=== PATIENT | female | born 1940 | race Caucasian/White ===

== ENCOUNTER 2018-08-16 19:20 | Inpatient (IN) | payer MEDICARE, MEDICAID ==
[2018-08-16 19:54] LABS: % BASOPHILS 0.3 % (0.0-2.0); % EOSINOPHILS 8.3 % (0.0-5.0); % LYMPHOCYTES 22.6 % (20.0-50.0); % MONOCYTES 9.6 % (2.0-10.0); % NEUTROPHILS 59.2 % (40.0-80.0); EOSINOPHILE ABSOLUTE 0.8 Th/cmm (0.1-0.4); HEMATOCRIT 39.4 % (41.0-60); HEMOGLOBIN 12.7 gm/dL (12-16); LYMPHOCYTE ABSOLUTE 2.2 Th/cmm (1.5-3.0); MEAN CELL VOLUME 94.1 fl (81-100); MEAN CORPUSCULAR HEMOGLOBIN 30.3 pg (27.0-31.0); MEAN CORPUSCULAR HGB CONC 32.2 pg (28.0-36.0); MEAN PLATELET VOLUME 9.5 fl; MONOCYTE ABSOLUTE 0.9 Th/cmm (0.3-1.0); NEUTROPHILE ABSOLUTE 5.9 Th/cmm (1.8-8.0); PLATELET COUNT 250 Th/cmm (150-400); RED BLOOD COUNT 4.19 Mil/cmm (3.80-5.20); RED CELL DISTRIBUTION WIDTH 12.3 % (11.5-20.0); WHITE BLOOD COUNT 9.8 Th/cmm (4.8-10.8)
--- NOTE | 2018-08-16 19:58 | ED Physician Chart ---
ED Chief Complaint/HPI - Patient Information Date Seen:: 08/16/18 Time Seen:: 19:35 Chief Complaint:: agitation History of Present Illness:: location: general quality: agitation, refusing care severity: moderate duration: one day context: SNF pt with pysch history has been refusing care and becoming more agitated. facility SNF staff are unable to provide routine care due to agitation and pt becoming angry with staff and pushing staff away. facility staff are unable to perform routine activity. called PCP who advised send to ER for medical evaluation. and possible joe- psych admission for further evaluation and care. mod factors: none assoc s/s: none hx from EMS, SNF staff. Allergies:: Allergies Allergy/AdvReac Type Severity Reaction Status Date / Time codeine Allergy Verified 08/16/18 19:30 Vitals:: Vital Signs - 8 hr 08/16/18 19:30 Temp 98.1 F HR 81 RR 17 BP 152/88 O2 Sat % 99 Historian:: EMS Review:: Nurse's Note Reviewed, EMS run form Reviewed ED Review of Systems - Review of Systems General/Constitutional: No fever, No edema Skin: No bruising Eyes: No diplopia ENT: No sore throat Neck: No neck pain Cardio Vascular: No edema Pulmonary: No cough, No wheezing GI: No vomiting, No diarrhea Musculoskeletal: No back pain Endocrine: No polyuria Psychiatric: Prior psych history Hematopoietic: No lymphadenopathy Allergic/Immuno: No angioedema Neurological: No syncope, No seizure ED Past Medical History - Past Medical History Family History: None Social History: Non Smoker, No Alcohol, No Drug Use, Single, Care Facility Surgical History: None Psychiatricy History: Schizophrenia, Bipolar Medication: Reviewed Family Medical History - Family Member Mother History Unknown: Yes ED Physical Exam - Physical Examination General/Constitutional: Awake, Well-developed, well-nourished, Alert, No distress (pt is agitated, initially refuses physician exam, pushes examiner away forcefully. permits exam later in visit), Non-toxic appearing Head: Atraumatic Eyes: Lids, conjuctiva normal, PERRL, EOMI Skin: Nl inspection, No skin lesions, Well hydrated ENMT: External ears, nose nl, Oropharynx nl Neck: Nontender, No nuchal rigidity Respiratory: Nl effort/Exclusion, Clear to Auscultation, No Wheeze/Rhonchi/Rales Cardio Vascular: RRR, No murmur, gallop, rubs, NL S1 S2 GI: No tenderness/rebounding/guarding : No CVA tenderness Extremities: No edema, Normal digits & nails Neuro/Psych: Normal sensory exam, Mood normal (agitated mood), No focal deficits Misc: Normal back, No paraspinal tenderness ED Labs/Radiology/EKG Results - EKG Interpretations Comments:: EKG NSR 70 borderline left axis deviation no acute ST elevation no acute ST depression no ectopy otherwise normal EKG ER READ ED Assessment - Assessment General Assessment: pt in stable medical condition during ER stay ED Septic Shock - . Is Septic Shock (SBP<90, OR Lactate>4 mmol\L) present?: No - <6hrs of presentation: Vital Signs: Vital Signs - 8 hr 08/16/18 19:30 Temp 98.1 F HR 81 RR 17 BP 152/88 O2 Sat % 99 Assessment of Lungs: Lung CTA bilateral Assessment of Heart: RRR EKG Interpretation: NSR Capillary refill evaluation: Capillary refill < 2 secs Skin Exam: Warm, Dry, Good Turgur ED Reassessment (Disposition) - Reassessment Reassessment:: medical decision making increased agitation, refusing facility care due to psychiatric symptom worsening medically pt is in stable condition. to be medically cleared for admission to joe-psyc Reassessment Condition:: Unchanged - Diagnosis Diagnosis:: medical clearance for joe-psyc due to agitation, exacerbation - Patient Disposition Discharge/Transfer:: Acute Care w/in this hosp Admitted to:: [facility] Admitting Medical Physician:: Ben Carroll Admitting Psych Physician:: Arnoldo Nava Condition at Disposition:: Stable, Unchanged
[2018-08-16 20:08] LABS: ALB/GLOB RATIO 1.3 (1.0-1.8); ALKALINE PHOSPHATASE 47 U/L (34-104); ANION GAP 12.9 (7.0-16.0); BILIRUBIN,TOTAL 0.3 mg/dL (0.3-1.0); BUN - UREA NITROGEN 29 mg/dL (7-25); CALCIUM SERUM 9.9 mg/dL (8.6-10.3); CARBON DIOXIDE 26.6 mEq/L (21.0-31.0); CHLORIDE 103 mEq/L (98-107); CREATININE - SERUM 0.9 mg/dL (0.6-1.2); GLUCOSE 103 mg/dL (70-105); POTASSIUM SERUM 3.5 mEq/L (3.5-5.1); SGOT 15 U/L (13-39); SGPT/ALT 11 U/L (7-52); SODIUM SERUM 139 mEq/L (136-145); TOTAL PROTEIN,SERUM 7.1 gm/dL (6.0-8.3)
[2018-08-16] MEDS ORDERED: Magnesium Hydroxide (MOM) 30 mL UDC PO PRN (21:57)
[2018-08-16] MEDS ORDERED: Maalox 30 mL Cup PO PRN (21:57)
[2018-08-16 22:00] VITALS: BP 133/66
[2018-08-16 23:14] LABS: CHOLESTEROL 242 mg/dL (<200); HDL -HIGH DENSITY LIPOPROTEIN 50 mg/dL (23-92); TRIGLYCERIDES 126 mg/dL (<150)
[2018-08-17] MEDS ORDERED: Non-Formulary Item 1 EA (Nutritional Supplement [Resource 2.0] 90 ML) PO SCH (09:00)
[2018-08-17] MEDS: Multivitamin Tab PO SCH (09:20)
--- NOTE | 2018-08-17 22:33 | History & Physical ---
ADMIT DATE: 08/16/2018 CHIEF COMPLAINT: Admitted to geropsychiatry with agitated behavior. HISTORY OF PRESENT ILLNESS: This is a 78-year-old female with history of hyperglycemia, hypertension and psych disorder, who was admitted from nursing facility secondary to above complaints. The patient is a poor historian, agitated, not making sense. PAST MEDICAL HISTORY: As mentioned in history present illness. PAST SURGICAL HISTORY: Unable to obtain. ALLERGIES: CODEINE. MEDICATIONS: Include Tylenol, Colace, lorazepam, lisinopril, Namenda, Zoloft. FAMILY HISTORY: Noncontributory. SOCIAL HISTORY: The patient is a [facility] patient, requiring 24-hour total care. REVIEW OF SYSTEMS: This is limited secondary to the patient's current mental state. We will try to obtain more detailed review of system at a later date by talking to family members. There is a son, Lorne Zelaya from [employer] [phone]. We will also try to get information from nursing staff at [facility] at [phone] as well as from Dr. Nava. PHYSICAL EXAMINATION: VITAL SIGNS: Blood pressure 143/76, respirations 18, pulse 74, temperature is 97.6. GENERAL: Elderly female, appears chronically ill, in a Mitra chair. NECK: Supple. No mass. LUNGS: Equal breath sounds, otherwise clear to auscultation. HEART: Regular rate and rhythm without appreciable murmurs. ABDOMEN: Soft, nontender. EXTREMITIES: Positive excoriation. NEUROLOGIC: Limited. LABORATORY DATA: WBC 9, hemoglobin 12, platelets 250. Sodium 139, potassium 3.5, BUN 29, creatinine 0.9. Blood sugar was 103, triglyceride 242. ASSESSMENT AND PLAN: Renal insufficiency, hyperglycemia, hypertension, psych disorder and gait instability. We will place the patient on fall precaution. We will continue the patient on antihypertensive medication. We will monitor the patient's ____ function, may consider a statin medication. We will place the patient on low-cholesterol diet for now. We will continue to monitor the patient closely. Psychiatry to manage the patient for all psych issues. JOB# [id number]
--- NOTE | 2018-08-18 05:50 | Psychiatric Evaluation ---
DATE OF SERVICE: 08/16/2018 IDENTIFYING DATA: The patient is a 78-year-old resident of [facility]. Information obtained by directly interviewing the patient as well as reviewing the admission papers. JUSTIFICATION FOR HOSPITALIZATION: The patient is admitted on a voluntary basis in view of her acute agitation. CHIEF COMPLAINT: "I am okay." HISTORY OF PRESENT ILLNESS: This is the first psychiatric hospitalization to [facility] for this patient who is reported to have been frequently falling and then refusing to participate in her ADLs and getting easily agitated and acting inappropriately and that basis, the patient has been referred over here for stabilization. I tried to get interviewed the patient, but the patient is refusing and is stating that everything is written up there and then she does not need to give any information. The patient has been getting very testy. Review of the hospitalization indicated that the patient is being followed up on an outpatient basis by Dr. Nava and has been on Zoloft 25 mg and Klonopin has been getting 0.5 mg b.i.d. p.r.n. With these medications, the patient is reported to have been still having a problem. PAST PSYCHIATRIC HISTORY: Details are not known. MEDICAL HISTORY: Physical examination is requested to be done by Dr. Carroll. LEGAL PROBLEMS: None at this time. PHYSICAL OR SEXUAL ABUSE HISTORY: None. STRENGTH AND ASSETS: The patient is motivated. MENTAL STATUS EXAMINATION: The patient is a 78-year-old woman, thin built, superficially cooperative. Eye contact is poor. Mood is noted to be irritable. Affect is constricted. Coping skills are noted to be extremely poor. Sleep and appetite are also noted to be very poor. The patient has been having difficult time to cope with the stress. The patient has been feeling frustrated. The patient is getting easily irritable and angry. The patient is reported to have been acting very inappropriately prior to being hospitalized. The patient's short and long-term memory are noted to be very poor. Therefore, the patient is aware that she is in the hospital. Attention span is noted to be very poor. DIAGNOSTIC IMPRESSION: AXIS I: Major depressive disorder, recurrent and moderate. IB: Dementia and behavioral change secondary to it. AXIS II: None. AXIS III: As per Dr. Carroll. IMMEDIATE TREATMENT PLAN: The patient is going to be continued on her Zoloft and Ativan on a p.r.n. basis and the patient is going to be followed up with the supportive therapy. ESTIMATED LENGTH OF STAY: 3-5 days. DISCHARGE CRITERIA: When the patient is no longer a threat to self or others and be able to cope up with the stress. JOB# [id number]
[2018-08-18] MEDS: Multivitamin Tab PO SCH (08:53)
--- NOTE | 2018-08-18 12:55 | Internal Medicine Prog Note ---
Internal Medicine Subjective - Subjective Patient seen and examined:: with staff, chart reviewed Patient is:: awake, verbal, devante chair, talking, confused Per staff patient has:: no adverse event, no episodes of fall, poor oral intake , agitated, combative Internal Medicine Objective - Results Result Diagrams: 08/16/18 19:45 08/16/18 19:45 Recent Labs: Laboratory Last Values WBC 9.8 Th/cmm (4.8-10.8) 08/16/18 19:45 RBC 4.19 Mil/cmm (3.80-5.20) 08/16/18 19:45 Hgb 12.7 gm/dL (12-16) 08/16/18 19:45 Hct 39.4 % (41.0-60) L 08/16/18 19:45 MCV 94.1 fl (81-100) 08/16/18 19:45 MCH 30.3 pg (27.0-31.0) 08/16/18 19:45 MCHC Differential 32.2 pg (28.0-36.0) 08/16/18 19:45 RDW 12.3 % (11.5-20.0) 08/16/18 19:45 Plt Count 250 Th/cmm (150-400) 08/16/18 19:45 MPV 9.5 fl 08/16/18 19:45 Neutrophils % 59.2 % (40.0-80.0) 08/16/18 19:45 Lymphocytes % 22.6 % (20.0-50.0) 08/16/18 19:45 Monocytes % 9.6 % (2.0-10.0) 08/16/18 19:45 Eosinophils % 8.3 % (0.0-5.0) H 08/16/18 19:45 Basophils % 0.3 % (0.0-2.0) 08/16/18 19:45 Sodium 139 mEq/L (136-145) 08/16/18 19:45 Potassium 3.5 mEq/L (3.5-5.1) 08/16/18 19:45 Chloride 103 mEq/L (98-107) 08/16/18 19:45 Carbon Dioxide 26.6 mEq/L (21.0-31.0) 08/16/18 19:45 Anion Gap 12.9 (7.0-16.0) 08/16/18 19:45 BUN 29 mg/dL (7-25) H 08/16/18 19:45 Creatinine 0.9 mg/dL (0.6-1.2) 08/16/18 19:45 Est GFR ( Amer) TNP 08/16/18 19:45 Est GFR (Non-Af Amer) TNP 08/16/18 19:45 BUN/Creatinine Ratio 32.2 08/16/18 19:45 Glucose 103 mg/dL (70-105) 08/16/18 19:45 Calcium 9.9 mg/dL (8.6-10.3) 08/16/18 19:45 Total Bilirubin 0.3 mg/dL (0.3-1.0) 08/16/18 19:45 AST 15 U/L (13-39) 08/16/18 19:45 ALT 11 U/L (7-52) 08/16/18 19:45 Alkaline Phosphatase 47 U/L (34-104) 08/16/18 19:45 Total Protein 7.1 gm/dL (6.0-8.3) 08/16/18 19:45 Albumin 4.0 gm/dL (3.7-5.3) 08/16/18 19:45 Globulin 3.1 gm/dL 08/16/18 19:45 Albumin/Globulin Ratio 1.3 (1.0-1.8) 08/16/18 19:45 Triglycerides 126 mg/dL (<150) 08/16/18 19:45 Cholesterol 242 mg/dL (<200) H 08/16/18 19:45 LDL Cholesterol Direct 172 mg/dL (75-193) 08/16/18 19:45 HDL Cholesterol 50 mg/dL (23-92) 08/16/18 19:45 TSH 2.82 uIU/ml (0.34-5.60) 08/16/18 19:45 - Physical Exam Vitals and I&O: Vital Signs Temp 97.8 F 08/18/18 06:26 Pulse 75 08/18/18 08:53 Resp 19 08/18/18 06:26 BP 147/85 08/18/18 08:53 Pulse Ox 96 08/18/18 06:26 Intake & Output 08/17/18 08/18/1819 18:59 06:59 18:59 Intake Total 1000 360 Output Total 1 Balance 1000 359 Intake: Oral 1000 360 Output: Urine/Stool Mix 1 Other: # Voids 2 1 # Bowel Movements 0 Active Medications: Current Medications Acetaminophen (Tylenol) 650 mg PO Q4HR PRN PRN Reason: Mild Pain 1-3/ Temp above 100 Stop: 10/15/18 21:56 Al Hydrox/Mg Hydrox/Simethicone (Maalox) 30 ml PO Q4HR PRN PRN Reason: GI DISTRESS Stop: 10/15/18 21:56 Amlodipine Besylate (Norvasc) 10 mg PO DAILY [facility] Stop: 10/16/18 08:59 Last Admin: 08/18/18 08:53 Dose: 10 mg Docusate Sodium (Colace) 100 mg PO BID [facility] Stop: 10/16/18 08:59 Last Admin: 08/18/18 08:54 Dose: 100 mg Lisinopril (Zestril) 10 mg PO DAILY [facility] Stop: 10/16/18 08:59 Last Admin: 08/18/18 08:53 Dose: 10 mg Lorazepam (Ativan) 0.5 mg PO Q4HR PRN; Protocol PRN Reason: Anxiety Stop: 09/15/18 21:56 Magnesium Hydroxide (Milk Of Magnesia) 30 ml PO HS PRN PRN Reason: Constipation Memantine (Namenda) 10 mg PO HS [facility] Stop: 10/16/18 20:59 Last Admin: 08/17/18 21:12 Dose: 10 mg Multivitamins/Vitamin C (Theragran) 1 tab PO DAILY [facility] Stop: 10/16/18 08:59 Last Admin: 08/18/18 08:53 Dose: 1 tab Sertraline HCl (Zoloft) 25 mg PO DAILY [facility]; Protocol Stop: 10/16/18 08:59 Last Admin: 08/18/18 08:53 Dose: 25 mg Zolpidem Tartrate (Ambien) 5 mg PO HS PRN PRN Reason: Insomnia Stop: 10/15/18 21:56 General: demented HEENT: NC/AT, PERRLA, EOMI Neck: Supple, No JVD, No thyromegaly Lungs: CTAB Cardiovascular: RRR, Normal S1, Normal S2, with murmur Abdomen: soft, non-tender, globular, positive bowel sound Extremities: excoriation, contracture Neurological: no change, disorganized Internal Medicine Assmt/Plan - Assessment Assessment: ASSESSMENT Renal insufficiency, hyperglycemia, hypertension, psych disorder and gait instability. We will place the patient on fall precaution. We will continue the patient on antihypertensive medication. - Plan Plan: PLAN: We will place the patient on fall precaution. We will continue the patient on antihypertensive medication. We will monitor the patient's __lft__ function, may consider a statin medication. We will place the patient on low-cholesterol diet for now. We will continue to monitor the patient closely. Psychiatry to manage the patient for all psych issues.
--- NOTE | 2018-08-19 01:21 | Progress Notes ---
DATE: 08/18/2018 PSYCHIATRIC PROGRESS NOTE SUBJECTIVE: Staff was spoken to. The patient is interviewed. Mood is noted to be irritable. Affect is constricted. Insight and judgment noted to be still impaired. Impulse control is very poor. The patient is still isolative and withdrawn. Mood is noted to be depressed. Coping skills are noted to be very poor. The patient has been presenting with anxiety symptoms and the patient is currently on the lorazepam on a p.r.n. basis. ASSESSMENT: The patient is still depressed. PLAN: To continue the patient with the current medications and followup. JOB# [id number]
[2018-08-19] MEDS: Multivitamin Tab PO SCH (08:49)
--- NOTE | 2018-08-19 09:45 | Internal Medicine Prog Note ---
Internal Medicine Subjective - Subjective Patient seen and examined:: with staff, chart reviewed Patient is:: awake, verbal, devante chair, talking, confused Per staff patient has:: no adverse event, no episodes of fall, poor oral intake , agitated, combative Internal Medicine Objective - Results Result Diagrams: 08/16/18 19:45 08/16/18 19:45 Recent Labs: Laboratory Last Values WBC 9.8 Th/cmm (4.8-10.8) 08/16/18 19:45 RBC 4.19 Mil/cmm (3.80-5.20) 08/16/18 19:45 Hgb 12.7 gm/dL (12-16) 08/16/18 19:45 Hct 39.4 % (41.0-60) L 08/16/18 19:45 MCV 94.1 fl (81-100) 08/16/18 19:45 MCH 30.3 pg (27.0-31.0) 08/16/18 19:45 MCHC Differential 32.2 pg (28.0-36.0) 08/16/18 19:45 RDW 12.3 % (11.5-20.0) 08/16/18 19:45 Plt Count 250 Th/cmm (150-400) 08/16/18 19:45 MPV 9.5 fl 08/16/18 19:45 Neutrophils % 59.2 % (40.0-80.0) 08/16/18 19:45 Lymphocytes % 22.6 % (20.0-50.0) 08/16/18 19:45 Monocytes % 9.6 % (2.0-10.0) 08/16/18 19:45 Eosinophils % 8.3 % (0.0-5.0) H 08/16/18 19:45 Basophils % 0.3 % (0.0-2.0) 08/16/18 19:45 Sodium 139 mEq/L (136-145) 08/16/18 19:45 Potassium 3.5 mEq/L (3.5-5.1) 08/16/18 19:45 Chloride 103 mEq/L (98-107) 08/16/18 19:45 Carbon Dioxide 26.6 mEq/L (21.0-31.0) 08/16/18 19:45 Anion Gap 12.9 (7.0-16.0) 08/16/18 19:45 BUN 29 mg/dL (7-25) H 08/16/18 19:45 Creatinine 0.9 mg/dL (0.6-1.2) 08/16/18 19:45 Est GFR ( Amer) TNP 08/16/18 19:45 Est GFR (Non-Af Amer) TNP 08/16/18 19:45 BUN/Creatinine Ratio 32.2 08/16/18 19:45 Glucose 103 mg/dL (70-105) 08/16/18 19:45 Calcium 9.9 mg/dL (8.6-10.3) 08/16/18 19:45 Total Bilirubin 0.3 mg/dL (0.3-1.0) 08/16/18 19:45 AST 15 U/L (13-39) 08/16/18 19:45 ALT 11 U/L (7-52) 08/16/18 19:45 Alkaline Phosphatase 47 U/L (34-104) 08/16/18 19:45 Total Protein 7.1 gm/dL (6.0-8.3) 08/16/18 19:45 Albumin 4.0 gm/dL (3.7-5.3) 08/16/18 19:45 Globulin 3.1 gm/dL 08/16/18 19:45 Albumin/Globulin Ratio 1.3 (1.0-1.8) 08/16/18 19:45 Triglycerides 126 mg/dL (<150) 08/16/18 19:45 Cholesterol 242 mg/dL (<200) H 08/16/18 19:45 LDL Cholesterol Direct 172 mg/dL (75-193) 08/16/18 19:45 HDL Cholesterol 50 mg/dL (23-92) 08/16/18 19:45 TSH 2.82 uIU/ml (0.34-5.60) 08/16/18 19:45 - Physical Exam Vitals and I&O: Vital Signs Temp 97.2 F 08/19/18 06:56 Pulse 85 08/19/18 08:51 Resp 20 08/19/18 06:56 BP 143/80 08/19/18 08:51 Pulse Ox 97 08/19/18 06:56 Intake & Output 08/18/18 08/19/1819 18:59 06:59 18:59 Intake Total 850 Balance 850 Intake: Oral 850 Other: # Voids 3 # Bowel Movements 1 Active Medications: Current Medications Acetaminophen (Tylenol) 650 mg PO Q4HR PRN PRN Reason: Mild Pain 1-3/ Temp above 100 Stop: 10/15/18 21:56 Al Hydrox/Mg Hydrox/Simethicone (Maalox) 30 ml PO Q4HR PRN PRN Reason: GI DISTRESS Stop: 10/15/18 21:56 Amlodipine Besylate (Norvasc) 10 mg PO DAILY REPLACED BY [facility] Stop: 10/16/18 08:59 Last Admin: 08/19/18 08:51 Dose: 10 mg Docusate Sodium (Colace) 100 mg PO BID REPLACED BY [facility] Stop: 10/16/18 08:59 Last Admin: 08/19/18 08:50 Dose: 100 mg Lisinopril (Zestril) 10 mg PO DAILY REPLACED BY [facility] Stop: 10/16/18 08:59 Last Admin: 08/19/18 08:50 Dose: 10 mg Lorazepam (Ativan) 0.5 mg PO Q4HR PRN; Protocol PRN Reason: Anxiety Stop: 09/15/18 21:56 Magnesium Hydroxide (Milk Of Magnesia) 30 ml PO HS PRN PRN Reason: Constipation Memantine (Namenda) 10 mg PO HS REPLACED BY [facility] Stop: 10/16/18 20:59 Last Admin: 08/18/18 21:39 Dose: 10 mg Multivitamins/Vitamin C (Theragran) 1 tab PO DAILY REPLACED BY [facility] Stop: 10/16/18 08:59 Last Admin: 08/19/18 08:49 Dose: 1 tab Sertraline HCl (Zoloft) 25 mg PO DAILY REPLACED BY [facility]; Protocol Stop: 10/16/18 08:59 Last Admin: 08/19/18 08:50 Dose: 25 mg Zolpidem Tartrate (Ambien) 5 mg PO HS PRN PRN Reason: Insomnia Stop: 10/15/18 21:56 General: demented HEENT: NC/AT, PERRLA, EOMI Neck: Supple, No JVD, No thyromegaly Lungs: CTAB Cardiovascular: RRR, Normal S1, Normal S2, with murmur Abdomen: soft, non-tender, globular, positive bowel sound Extremities: excoriation, contracture Neurological: no change, disorganized Internal Medicine Assmt/Plan - Assessment Assessment: ASSESSMENT Renal insufficiency, hyperglycemia, hypertension, psych disorder and gait instability. We will place the patient on fall precaution. We will continue the patient on antihypertensive medication. - Plan Plan: PLAN: We will place the patient on fall precaution. We will continue the patient on antihypertensive medication. We will monitor the patient's __lft__ function, may consider a statin medication. We will place the patient on low-cholesterol diet for now. We will continue to monitor the patient closely. Psychiatry to manage the patient for all psych issues.
--- NOTE | 2018-08-19 16:09 | Progress Notes ---
DATE: 08/19/2018 SUBJECTIVE: Staff was spoken to. The patient is interviewed. Mood is noted to be irritable. Affect is constricted. Insight and judgment are noted to be impaired. Impulse control is noted to be poor. Coping skills are also noted to be very poor. The patient is very angry and upset and is stating that she is going to ____ of other people. The patient has been testing the limits. The patient is not able to contract for safety. No side effects to the medications are noted. In view of her paranoia. The patient is going to be started on low dose of Seroquel, which is going to be started at 12.5 mg and followed up with supportive therapy. Please note that the patient is not ready to be discharged at a lower level of care in view of her aggressive behavior and paranoid delusions. JOB# [id number]
[2018-08-20] MEDS: Multivitamin Tab PO SCH (09:23)
--- NOTE | 2018-08-20 09:52 | Internal Medicine Prog Note ---
Internal Medicine Subjective - Subjective Patient seen and examined:: with staff, chart reviewed Patient is:: awake, verbal, devante chair, talking, confused Per staff patient has:: no adverse event, no episodes of fall, poor oral intake , agitated, combative Internal Medicine Objective - Results Result Diagrams: 08/16/18 19:45 08/16/18 19:45 Recent Labs: Laboratory Last Values WBC 9.8 Th/cmm (4.8-10.8) 08/16/18 19:45 RBC 4.19 Mil/cmm (3.80-5.20) 08/16/18 19:45 Hgb 12.7 gm/dL (12-16) 08/16/18 19:45 Hct 39.4 % (41.0-60) L 08/16/18 19:45 MCV 94.1 fl (81-100) 08/16/18 19:45 MCH 30.3 pg (27.0-31.0) 08/16/18 19:45 MCHC Differential 32.2 pg (28.0-36.0) 08/16/18 19:45 RDW 12.3 % (11.5-20.0) 08/16/18 19:45 Plt Count 250 Th/cmm (150-400) 08/16/18 19:45 MPV 9.5 fl 08/16/18 19:45 Neutrophils % 59.2 % (40.0-80.0) 08/16/18 19:45 Lymphocytes % 22.6 % (20.0-50.0) 08/16/18 19:45 Monocytes % 9.6 % (2.0-10.0) 08/16/18 19:45 Eosinophils % 8.3 % (0.0-5.0) H 08/16/18 19:45 Basophils % 0.3 % (0.0-2.0) 08/16/18 19:45 Sodium 139 mEq/L (136-145) 08/16/18 19:45 Potassium 3.5 mEq/L (3.5-5.1) 08/16/18 19:45 Chloride 103 mEq/L (98-107) 08/16/18 19:45 Carbon Dioxide 26.6 mEq/L (21.0-31.0) 08/16/18 19:45 Anion Gap 12.9 (7.0-16.0) 08/16/18 19:45 BUN 29 mg/dL (7-25) H 08/16/18 19:45 Creatinine 0.9 mg/dL (0.6-1.2) 08/16/18 19:45 Est GFR ( Amer) TNP 08/16/18 19:45 Est GFR (Non-Af Amer) TNP 08/16/18 19:45 BUN/Creatinine Ratio 32.2 08/16/18 19:45 Glucose 103 mg/dL (70-105) 08/16/18 19:45 Calcium 9.9 mg/dL (8.6-10.3) 08/16/18 19:45 Total Bilirubin 0.3 mg/dL (0.3-1.0) 08/16/18 19:45 AST 15 U/L (13-39) 08/16/18 19:45 ALT 11 U/L (7-52) 08/16/18 19:45 Alkaline Phosphatase 47 U/L (34-104) 08/16/18 19:45 Total Protein 7.1 gm/dL (6.0-8.3) 08/16/18 19:45 Albumin 4.0 gm/dL (3.7-5.3) 08/16/18 19:45 Globulin 3.1 gm/dL 08/16/18 19:45 Albumin/Globulin Ratio 1.3 (1.0-1.8) 08/16/18 19:45 Triglycerides 126 mg/dL (<150) 08/16/18 19:45 Cholesterol 242 mg/dL (<200) H 08/16/18 19:45 LDL Cholesterol Direct 172 mg/dL (75-193) 08/16/18 19:45 HDL Cholesterol 50 mg/dL (23-92) 08/16/18 19:45 TSH 2.82 uIU/ml (0.34-5.60) 08/16/18 19:45 - Physical Exam Vitals and I&O: Vital Signs Temp 99.0 F 08/19/18 14:00 Pulse 75 08/20/18 09:25 Resp 18 08/19/18 14:00 BP 126/73 08/20/18 09:25 Pulse Ox 96 08/19/18 14:00 Intake & Output 08/19/18 08/20/1819 18:59 06:59 18:59 Intake Total 700 120 Balance 700 120 Intake: Oral 700 120 Other: # Voids 3 3 # Bowel Movements 1 Active Medications: Current Medications Acetaminophen (Tylenol) 650 mg PO Q4HR PRN PRN Reason: Mild Pain 1-3/ Temp above 100 Stop: 10/15/18 21:56 Al Hydrox/Mg Hydrox/Simethicone (Maalox) 30 ml PO Q4HR PRN PRN Reason: GI DISTRESS Stop: 10/15/18 21:56 Amlodipine Besylate (Norvasc) 10 mg PO DAILY [facility] Stop: 10/16/18 08:59 Last Admin: 08/20/18 09:25 Dose: 10 mg Docusate Sodium (Colace) 100 mg PO BID [facility] Stop: 10/16/18 08:59 Last Admin: 08/20/18 09:23 Dose: 100 mg Lisinopril (Zestril) 10 mg PO DAILY [facility] Stop: 10/16/18 08:59 Last Admin: 08/20/18 09:24 Dose: 10 mg Lorazepam (Ativan) 0.5 mg PO Q4HR PRN; Protocol PRN Reason: Anxiety Stop: 09/15/18 21:56 Magnesium Hydroxide (Milk Of Magnesia) 30 ml PO HS PRN PRN Reason: Constipation Memantine (Namenda) 10 mg PO HS [facility] Stop: 10/16/18 20:59 Last Admin: 08/19/18 20:50 Dose: 10 mg Multivitamins/Vitamin C (Theragran) 1 tab PO DAILY [facility] Stop: 10/16/18 08:59 Last Admin: 08/20/18 09:23 Dose: 1 tab Quetiapine Fumarate (Seroquel) 12.5 mg PO HS [facility]; Protocol Stop: 10/18/18 20:59 Last Admin: 08/19/18 20:50 Dose: 12.5 mg Sertraline HCl (Zoloft) 25 mg PO DAILY [facility]; Protocol Stop: 10/16/18 08:59 Last Admin: 08/20/18 09:24 Dose: 25 mg Zolpidem Tartrate (Ambien) 5 mg PO HS PRN PRN Reason: Insomnia Stop: 10/15/18 21:56 General: demented HEENT: NC/AT, PERRLA, EOMI Neck: Supple, No JVD, No thyromegaly Lungs: CTAB Cardiovascular: RRR, Normal S1, Normal S2, with murmur Abdomen: soft, non-tender, globular, positive bowel sound Extremities: excoriation, contracture Neurological: no change, disorganized Internal Medicine Assmt/Plan - Assessment Assessment: ASSESSMENT Renal insufficiency, hyperglycemia, hypertension, psych disorder and gait instability. We will place the patient on fall precaution. We will continue the patient on antihypertensive medication. - Plan Plan: PLAN: We will place the patient on fall precaution. We will continue the patient on antihypertensive medication. We will monitor the patient's __lft__ function, may consider a statin medication. We will place the patient on low-cholesterol diet for now. We will continue to monitor the patient closely. Psychiatry to manage the patient for all psych issues. Nutritional Asmnt/Malnutr-PDOC - Dietary Evaluation Malnutrition Findings (Please click <Entered> for more info): Nutritional Asmnt/Malnutrition Start: 08/19/18 10: 29 Text: Status: Complete Freq: Protocol: Document 08/19/18 10:29 RHAQUE (Rec: 08/19/18 10:51 RHAQUE [email or web address]) Nutritional Asmnt/Malnutrition Patient General Information Nutritional Screening Moderate Risk Diagnosis Psychosis Pertinent Medical Hx/Surgical Hx Hyperglycemia, HTN, Schizophrenia Subjective Information Pt was asleep during IA. Nurse described her as very confused and combative. Pt is described as eating 75% of meals. Current Diet Order/ Nutrition Support Fortified Regular diet, 4 oz. HPN at lunch and dinner Pertinent Medications Maalox, Docusate, MOM, Zoloft, Ambien Pertinent Labs Cholest 242 (08/16) Nutritional Hx/Data Height 1.57 m Height (Calculated Centimeters) 157.5 Current Weight (lbs) 58.967 kg Weight (Calculated Kilograms) 59.0 Weight (Calculated Grams) 53096.0 [place] Body Weight 110 % [place] Body Weight 118 Body Mass Index (BMI) 23.8 Weight Status Approriate GI Symptoms GI Symptoms None Last BM 1 x (08/19) Difficult in: None Food Allergies No Cultural/Ethnic/Orthodox Belief None Noted Skin Integrity/Comment: Jacobo Score 17 (Mod risk) Pt has photos in her physical chart of Ecchymosis on her arms & legs. Current %PO Good (75-100%) Estimated Nutritional Goals BEE in Kcals: Adj wt of IBW Calories/Kcals/Kg 25-30 Kcals Calculated 2606-6289 Protein: Adj wt of IBW Protein g/k.8-1 Protein Calculated 42-52 Fluid: ml 5403-9087 Nutritional Problem 1. Problem Problem Pt has excessive fat intake Etiology due to inappropriate diet order Signs/Symptoms: labs indicate Hypercholesterolemia Cholest 242 (08/16) Malnutrition Alert Is there a minimum of two criteria No selected? Query Text:Check all the applicable criteria. A minimum of two criteria are recommended for diagnosis of either severe or non-severe malnutrition. Malnutrition Related to Morbid Obesity Malnutrition related to morbid obesity No Intervention/Recommendation Comments Recommend changing diet order to cardiac diet. Expected Outcomes/Goals Expected Outcomes/Goals - Monitor PO intake. - Lipid Panel Return to WNL. - F/U in 7 days as LR
--- NOTE | 2018-08-20 22:08 | Progress Notes ---
DATE: 08/20/2018 PSYCHIATRIC PROGRESS NOTE SUBJECTIVE: Staff was spoken to. The patient is interviewed. Mood is noted to be irritable. Affect is constricted. Insight and judgment at this time are noted to be still impaired. Impulse control is noted to be poor. Coping skills are noted to be very poor. The patient has been isolative and withdrawn. The patient is having difficult time to cope with the stress. No side effects to the medications are noted; however, the patient continues to be paranoid and has been getting easily irritable and angry and has been sexually preoccupied. No side effects to the medications are noted. The patient is going to be placed on Seroquel, which is going to be increased to 25 mg tonight and the patient is going to be followed up with the supportive therapy. ASSESSMENT: The patient is depressed and psychotic. PLAN: To continue the patient with the supportive therapy and followup. JOB# [id number]
--- NOTE | 2018-08-20 23:31 | Consultation ---
DATE OF CONSULTATION: 08/18/2018 REFERRING PHYSICIAN: Ricardo Tripp M.D. TYPE OF CONSULTATION: Psychology. HISTORY OF PRESENT ILLNESS: The patient is a 78-year-old female. The patient is a resident of [facility]. The following is by record review and by the patient's self-report. The patient is being admitted due to acute agitation. Upon interview, the patient states that she believes she is okay. According to the staff at the patient's facility the patient has been refusing to participate in her ADLs and getting easily agitated and acting inappropriately. It is noted the patient has had frequent falls. The patient seems to be testing limits. The patient denied any suicidal ideation, plan or intention at the time of this clinical interview. PAST MEDICAL HISTORY: Please see history and physical by Dr. Carroll. PAST PSYCHIATRIC HISTORY: Details are unknown. Records are unavailable. According to record review, the patient has a history of depression and dementia. The patient is under the care of Dr. Nava at her placement. SUBSTANCE ABUSE HISTORY: The patient denied any history of alcohol, tobacco or illicit drug use. PSYCHOSOCIAL HISTORY: The patient did answer questions about family relationships and family members involved in her care. The patient did not answer questions about occupational or educational history or orthodox affiliation. The patient denied any history of physical or sexual abuse. She denies current legal problems. MENTAL STATUS EXAMINATION: The patient appears to be her stated age. The patient appears to be frail. Attitude is superficially cooperative. Eye contact is poor. Speech is slow and delayed with some mumbling. Mood is irritable. Affect is constricted. Thought process shows to be confused. The patient denied any auditory or visual hallucinations. The patient denies any suicidal ideation, plan or intention. The patient's behavior has been difficult to redirect as well as irritable and angry. Impulse control is inadequate. Concentration is poor. The patient was unable to repeat 3 items given to her the first time. She was unable to recall any of the 3 items after several minutes. Immediate and short term memory are impaired. Long-term memory needs further evaluation, but presents as somewhat impaired. Sensorium is alert to self and place only. The patient did not participate in interpretation of proverbs. Insight is poor. Judgment is impaired. DIAGNOSTIC IMPRESSION: AXIS I: 1. Major depressive disorder, recurrent, moderate. 2. Dementia with behavioral disturbance. AXIS II: Deferred. AXIS III: Per Dr. Carroll. TREATMENT PLAN: The patient has been seen by Dr. Tripp for psychiatric evaluation and for the management of the patient's psychotropic medications. According to the treatment plan the patient is continued on Zoloft and Ativan on a p.r.n. basis. We will provide supportive psychotherapy to include reality orientation, differentiation and integration. We will provide de-escalation and limit setting. We will encourage the patient to be able to demonstrate emotional and self-regulation and be able to verbalize her concerns. We will provide coping strategies for phase of life issues. We will provide motivational enhancement for the patient to become compliant and stay compliant with all aspects of her care and treatment. We will provide cognitive behavioral therapy to reduce the patient's depression if the patient is able to demonstrate the capacity to participate in this type of psychotherapeutic intervention. We will continue to provide supportive psychotherapy throughout the patient's hospital stay. Thank you, Dr. Tripp for this consult and the opportunity to participate in this patient's care. JOB# [id number] MTDD
[2018-08-21] MEDS: Multivitamin Tab PO SCH (09:46)
--- NOTE | 2018-08-21 16:04 | Internal Medicine Prog Note ---
Internal Medicine Subjective - Subjective Patient seen and examined:: with staff, chart reviewed Patient is:: awake, verbal, devante chair, talking, confused Per staff patient has:: no adverse event, no episodes of fall, poor oral intake , agitated, combative Internal Medicine Objective - Results Result Diagrams: 08/16/18 19:45 08/16/18 19:45 Recent Labs: Laboratory Last Values WBC 9.8 Th/cmm (4.8-10.8) 08/16/18 19:45 RBC 4.19 Mil/cmm (3.80-5.20) 08/16/18 19:45 Hgb 12.7 gm/dL (12-16) 08/16/18 19:45 Hct 39.4 % (41.0-60) L 08/16/18 19:45 MCV 94.1 fl (81-100) 08/16/18 19:45 MCH 30.3 pg (27.0-31.0) 08/16/18 19:45 MCHC Differential 32.2 pg (28.0-36.0) 08/16/18 19:45 RDW 12.3 % (11.5-20.0) 08/16/18 19:45 Plt Count 250 Th/cmm (150-400) 08/16/18 19:45 MPV 9.5 fl 08/16/18 19:45 Neutrophils % 59.2 % (40.0-80.0) 08/16/18 19:45 Lymphocytes % 22.6 % (20.0-50.0) 08/16/18 19:45 Monocytes % 9.6 % (2.0-10.0) 08/16/18 19:45 Eosinophils % 8.3 % (0.0-5.0) H 08/16/18 19:45 Basophils % 0.3 % (0.0-2.0) 08/16/18 19:45 Sodium 139 mEq/L (136-145) 08/16/18 19:45 Potassium 3.5 mEq/L (3.5-5.1) 08/16/18 19:45 Chloride 103 mEq/L (98-107) 08/16/18 19:45 Carbon Dioxide 26.6 mEq/L (21.0-31.0) 08/16/18 19:45 Anion Gap 12.9 (7.0-16.0) 08/16/18 19:45 BUN 29 mg/dL (7-25) H 08/16/18 19:45 Creatinine 0.9 mg/dL (0.6-1.2) 08/16/18 19:45 Est GFR ( Amer) TNP 08/16/18 19:45 Est GFR (Non-Af Amer) TNP 08/16/18 19:45 BUN/Creatinine Ratio 32.2 08/16/18 19:45 Glucose 103 mg/dL (70-105) 08/16/18 19:45 Calcium 9.9 mg/dL (8.6-10.3) 08/16/18 19:45 Total Bilirubin 0.3 mg/dL (0.3-1.0) 08/16/18 19:45 AST 15 U/L (13-39) 08/16/18 19:45 ALT 11 U/L (7-52) 08/16/18 19:45 Alkaline Phosphatase 47 U/L (34-104) 08/16/18 19:45 Total Protein 7.1 gm/dL (6.0-8.3) 08/16/18 19:45 Albumin 4.0 gm/dL (3.7-5.3) 08/16/18 19:45 Globulin 3.1 gm/dL 08/16/18 19:45 Albumin/Globulin Ratio 1.3 (1.0-1.8) 08/16/18 19:45 Triglycerides 126 mg/dL (<150) 08/16/18 19:45 Cholesterol 242 mg/dL (<200) H 08/16/18 19:45 LDL Cholesterol Direct 172 mg/dL (75-193) 08/16/18 19:45 HDL Cholesterol 50 mg/dL (23-92) 08/16/18 19:45 TSH 2.82 uIU/ml (0.34-5.60) 08/16/18 19:45 RPR NONREACTIVE (NONREACTIVE) 08/16/18 19:45 - Physical Exam Vitals and I&O: Vital Signs Temp 97.9 F 08/20/18 20:23 Pulse 76 08/20/18 20:23 Resp 18 08/20/18 20:23 BP 118/57 08/20/18 20:23 Pulse Ox 96 08/20/18 20:23 Intake & Output 08/20/18 08/21/18 08/21/18 18:59 06:59 18:59 Intake Total 180 Balance 180 Intake: Oral 180 Other: # Voids 2 # Bowel Movements 0 Active Medications: Current Medications Acetaminophen (Tylenol) 650 mg PO Q4HR PRN PRN Reason: Mild Pain 1-3/ Temp above 100 Stop: 10/15/18 21:56 Al Hydrox/Mg Hydrox/Simethicone (Maalox) 30 ml PO Q4HR PRN PRN Reason: GI DISTRESS Stop: 10/15/18 21:56 Amlodipine Besylate (Norvasc) 10 mg PO DAILY [facility] Stop: 10/16/18 08:59 Last Admin: 08/21/18 09:46 Dose: Not Given Docusate Sodium (Colace) 100 mg PO BID [facility] Stop: 10/16/18 08:59 Last Admin: 08/21/18 09:46 Dose: Not Given Lisinopril (Zestril) 10 mg PO DAILY [facility] Stop: 10/16/18 08:59 Last Admin: 08/21/18 09:46 Dose: Not Given Lorazepam (Ativan) 0.5 mg PO Q4HR PRN; Protocol PRN Reason: Anxiety Stop: 09/15/18 21:56 Magnesium Hydroxide (Milk Of Magnesia) 30 ml PO HS PRN PRN Reason: Constipation Memantine (Namenda) 10 mg PO HS [facility] Stop: 10/16/18 20:59 Last Admin: 08/20/18 21:50 Dose: 10 mg Multivitamins/Vitamin C (Theragran) 1 tab PO DAILY [facility] Stop: 10/16/18 08:59 Last Admin: 08/21/18 09:46 Dose: Not Given Quetiapine Fumarate (Seroquel) 25 mg PO HS [facility]; Protocol Stop: 10/19/18 20:59 Last Admin: 08/20/18 21:50 Dose: 25 mg Sertraline HCl (Zoloft) 25 mg PO DAILY [facility]; Protocol Stop: 10/16/18 08:59 Last Admin: 08/21/18 09:47 Dose: Not Given Zolpidem Tartrate (Ambien) 5 mg PO HS PRN PRN Reason: Insomnia Stop: 10/15/18 21:56 General: demented HEENT: NC/AT, PERRLA, EOMI Neck: Supple, No JVD, No thyromegaly Lungs: CTAB Cardiovascular: RRR, Normal S1, Normal S2, with murmur Abdomen: soft, non-tender, globular, positive bowel sound Extremities: excoriation, contracture Neurological: no change, disorganized Internal Medicine Assmt/Plan - Assessment Assessment: ASSESSMENT Renal insufficiency, hyperglycemia, hypertension, psych disorder and gait instability. We will place the patient on fall precaution. We will continue the patient on antihypertensive medication. - Plan Plan: PLAN: We will place the patient on fall precaution. We will continue the patient on antihypertensive medication. We will monitor the patient's __lft__ function, may consider a statin medication. We will place the patient on low-cholesterol diet for now. We will continue to monitor the patient closely. Psychiatry to manage the patient for all psych issues. Nutritional Asmnt/Malnutr-PDOC - Dietary Evaluation Malnutrition Findings (Please click <Entered> for more info): Nutritional Asmnt/Malnutrition Start: 08/19/18 10: 29 Text: Status: Complete Freq: Protocol: Document 08/19/18 10:29 [email or web address] (Rec: 08/19/18 10:51 RHAQUE VIKRAM) Nutritional Asmnt/Malnutrition Patient General Information Nutritional Screening Moderate Risk Diagnosis Psychosis Pertinent Medical Hx/Surgical Hx Hyperglycemia, HTN, Schizophrenia Subjective Information Pt was asleep during IA. Nurse described her as very confused and combative. Pt is described as eating 75% of meals. Current Diet Order/ Nutrition Support Fortified Regular diet, 4 oz. HPN at lunch and dinner Pertinent Medications Maalox, Docusate, MOM, Zoloft, Ambien Pertinent Labs Cholest 242 (08/16) Nutritional Hx/Data Height 1.57 m Height (Calculated Centimeters) 157.5 Current Weight (lbs) 58.967 kg Weight (Calculated Kilograms) 59.0 Weight (Calculated Grams) 46889.0 [place] Body Weight 110 % [place] Body Weight 118 Body Mass Index (BMI) 23.8 Weight Status Approriate GI Symptoms GI Symptoms None Last BM 1 x (08/19) Difficult in: None Food Allergies No Cultural/Ethnic/Muslim Belief None Noted Skin Integrity/Comment: Jacobo Score 17 (Mod risk) Pt has photos in her physical chart of Ecchymosis on her arms & legs. Current %PO Good (75-100%) Estimated Nutritional Goals BEE in Kcals: Adj wt of IBW Calories/Kcals/Kg 25-30 Kcals Calculated 4865-3679 Protein: Adj wt of IBW Protein g/k.8-1 Protein Calculated 42-52 Fluid: ml 8877-9043 Nutritional Problem 1. Problem Problem Pt has excessive fat intake Etiology due to inappropriate diet order Signs/Symptoms: labs indicate Hypercholesterolemia Cholest 242 (08/16) Malnutrition Alert Is there a minimum of two criteria No selected? Query Text:Check all the applicable criteria. A minimum of two criteria are recommended for diagnosis of either severe or non-severe malnutrition. Malnutrition Related to Morbid Obesity Malnutrition related to morbid obesity No Intervention/Recommendation Comments Recommend changing diet order to cardiac diet. Expected Outcomes/Goals Expected Outcomes/Goals - Monitor PO intake. - Lipid Panel Return to WNL. - F/U in 7 days as LR
--- NOTE | 2018-08-22 02:55 | Progress Notes ---
DATE: 08/21/2018 SUBJECTIVE: Staff was spoken to. The patient is interviewed. Mood is noted to be irritable. Affect is constricted. The patient is still screaming and yelling and has been sexually preoccupied. Insight and judgment at this time are noted to be very much impaired. ASSESSMENT: The patient is still impulsive. PLAN: To continue the patient with the supportive therapy, encouraged the patient to verbalize the concerns rather than to act out. The patient is not ready to be discharged to a lower level of care in view of her poor coping skills. JOB# [id number]
[2018-08-22] MEDS: Multivitamin Tab PO SCH (09:52)
--- NOTE | 2018-08-22 13:20 | Internal Medicine Prog Note ---
Internal Medicine Subjective - Subjective Service Date: 08/22/18 Patient is:: awake, verbal, devante chair, talking, confused Per staff patient has:: no adverse event, no episodes of fall, poor oral intake , agitated, combative Internal Medicine Objective - Results Result Diagrams: 08/16/18 19:45 08/16/18 19:45 Recent Labs: Laboratory Last Values WBC 9.8 Th/cmm (4.8-10.8) 08/16/18 19:45 RBC 4.19 Mil/cmm (3.80-5.20) 08/16/18 19:45 Hgb 12.7 gm/dL (12-16) 08/16/18 19:45 Hct 39.4 % (41.0-60) L 08/16/18 19:45 MCV 94.1 fl (81-100) 08/16/18 19:45 MCH 30.3 pg (27.0-31.0) 08/16/18 19:45 MCHC Differential 32.2 pg (28.0-36.0) 08/16/18 19:45 RDW 12.3 % (11.5-20.0) 08/16/18 19:45 Plt Count 250 Th/cmm (150-400) 08/16/18 19:45 MPV 9.5 fl 08/16/18 19:45 Neutrophils % 59.2 % (40.0-80.0) 08/16/18 19:45 Lymphocytes % 22.6 % (20.0-50.0) 08/16/18 19:45 Monocytes % 9.6 % (2.0-10.0) 08/16/18 19:45 Eosinophils % 8.3 % (0.0-5.0) H 08/16/18 19:45 Basophils % 0.3 % (0.0-2.0) 08/16/18 19:45 Sodium 139 mEq/L (136-145) 08/16/18 19:45 Potassium 3.5 mEq/L (3.5-5.1) 08/16/18 19:45 Chloride 103 mEq/L (98-107) 08/16/18 19:45 Carbon Dioxide 26.6 mEq/L (21.0-31.0) 08/16/18 19:45 Anion Gap 12.9 (7.0-16.0) 08/16/18 19:45 BUN 29 mg/dL (7-25) H 08/16/18 19:45 Creatinine 0.9 mg/dL (0.6-1.2) 08/16/18 19:45 Est GFR ( Amer) TNP 08/16/18 19:45 Est GFR (Non-Af Amer) TNP 08/16/18 19:45 BUN/Creatinine Ratio 32.2 08/16/18 19:45 Glucose 103 mg/dL (70-105) 08/16/18 19:45 Calcium 9.9 mg/dL (8.6-10.3) 08/16/18 19:45 Total Bilirubin 0.3 mg/dL (0.3-1.0) 08/16/18 19:45 AST 15 U/L (13-39) 08/16/18 19:45 ALT 11 U/L (7-52) 08/16/18 19:45 Alkaline Phosphatase 47 U/L (34-104) 08/16/18 19:45 Total Protein 7.1 gm/dL (6.0-8.3) 08/16/18 19:45 Albumin 4.0 gm/dL (3.7-5.3) 08/16/18 19:45 Globulin 3.1 gm/dL 08/16/18 19:45 Albumin/Globulin Ratio 1.3 (1.0-1.8) 08/16/18 19:45 Triglycerides 126 mg/dL (<150) 08/16/18 19:45 Cholesterol 242 mg/dL (<200) H 08/16/18 19:45 LDL Cholesterol Direct 172 mg/dL (75-193) 08/16/18 19:45 HDL Cholesterol 50 mg/dL (23-92) 08/16/18 19:45 TSH 2.82 uIU/ml (0.34-5.60) 08/16/18 19:45 RPR NONREACTIVE (NONREACTIVE) 08/16/18 19:45 - Physical Exam Vitals and I&O: Vital Signs Temp 97.9 F 08/20/18 20:23 Pulse 76 08/20/18 20:23 Resp 18 08/20/18 20:23 BP 118/57 08/20/18 20:23 Pulse Ox 96 08/20/18 20:23 Intake & Output 08/21/18 08/22/18 08/22/18 18:59 06:59 18:59 Intake Total 700 120 Output Total 1 Balance 700 119 Intake: Oral 700 120 Output: Urine/Stool Mix 1 Other: # Voids 3 1 # Bowel Movements 0 Active Medications: Current Medications Acetaminophen (Tylenol) 650 mg PO Q4HR PRN PRN Reason: Mild Pain 1-3/ Temp above 100 Stop: 10/15/18 21:56 Al Hydrox/Mg Hydrox/Simethicone (Maalox) 30 ml PO Q4HR PRN PRN Reason: GI DISTRESS Stop: 10/15/18 21:56 Amlodipine Besylate (Norvasc) 10 mg PO DAILY [facility] Stop: 10/16/18 08:59 Last Admin: 08/22/18 09:52 Dose: Not Given Docusate Sodium (Colace) 100 mg PO BID [facility] Stop: 10/16/18 08:59 Last Admin: 08/22/18 09:51 Dose: 100 mg Lisinopril (Zestril) 10 mg PO DAILY [facility] Stop: 10/16/18 08:59 Last Admin: 08/22/18 09:52 Dose: Not Given Lorazepam (Ativan) 0.5 mg PO Q4HR PRN; Protocol PRN Reason: Anxiety Stop: 09/15/18 21:56 Last Admin: 08/22/18 09:52 Dose: 0.5 mg Magnesium Hydroxide (Milk Of Magnesia) 30 ml PO HS PRN PRN Reason: Constipation Memantine (Namenda) 10 mg PO HS [facility] Stop: 10/16/18 20:59 Last Admin: 08/21/18 21:08 Dose: 10 mg Multivitamins/Vitamin C (Theragran) 1 tab PO DAILY [facility] Stop: 10/16/18 08:59 Last Admin: 08/22/18 09:52 Dose: 1 tab Quetiapine Fumarate (Seroquel) 25 mg PO HS [facility]; Protocol Stop: 10/19/18 20:59 Last Admin: 08/21/18 21:08 Dose: 25 mg Sertraline HCl (Zoloft) 25 mg PO DAILY [facility]; Protocol Stop: 10/16/18 08:59 Last Admin: 08/22/18 09:51 Dose: 25 mg Zolpidem Tartrate (Ambien) 5 mg PO HS PRN PRN Reason: Insomnia Stop: 10/15/18 21:56 General: demented HEENT: NC/AT, PERRLA, EOMI Neck: Supple, No JVD, No thyromegaly Lungs: CTAB Cardiovascular: RRR, Normal S1, Normal S2, with murmur Abdomen: soft, non-tender, globular, positive bowel sound Extremities: excoriation, contracture Neurological: no change, disorganized Internal Medicine Assmt/Plan - Assessment Assessment: Renal insufficiency, hyperglycemia, hypertension, psych disorder and gait instability. We will place the patient on fall precaution. We will continue the patient on antihypertensive medication. - Plan Plan: fall precautions continue current plan of care Nutritional Asmnt/Malnutr-PDOC - Dietary Evaluation Malnutrition Findings (Please click <Entered> for more info): Nutritional Asmnt/Malnutrition Start: 08/19/18 10: 29 Text: Status: Complete Freq: Protocol: Document 08/19/18 10:29 DANITZA (Rec: 08/19/18 10:51 DANITZA SUE) Nutritional Asmnt/Malnutrition Patient General Information Nutritional Screening Moderate Risk Diagnosis Psychosis Pertinent Medical Hx/Surgical Hx Hyperglycemia, HTN, Schizophrenia Subjective Information Pt was asleep during IA. Nurse described her as very confused and combative. Pt is described as eating 75% of meals. Current Diet Order/ Nutrition Support Fortified Regular diet, 4 oz. HPN at lunch and dinner Pertinent Medications Maalox, Docusate, MOM, Zoloft, Ambien Pertinent Labs Cholest 242 (08/16) Nutritional Hx/Data Height 5 ft 2 in Height (Calculated Centimeters) 157.5 Current Weight (lbs) 130 lb Weight (Calculated Kilograms) 59.0 Weight (Calculated Grams) 18082.0 [place] Body Weight 110 % [place] Body Weight 118 Body Mass Index (BMI) 23.8 Weight Status Approriate GI Symptoms GI Symptoms None Last BM 1 x (08/19) Difficult in: None Food Allergies No Cultural/Ethnic/Spiritism Belief None Noted Skin Integrity/Comment: Jacobo Score 17 (Mod risk) Pt has photos in her physical chart of Ecchymosis on her arms & legs. Current %PO Good (75-100%) Estimated Nutritional Goals BEE in Kcals: Adj wt of IBW Calories/Kcals/Kg 25-30 Kcals Calculated 7082-5170 Protein: Adj wt of IBW Protein g/k.8-1 Protein Calculated 42-52 Fluid: ml 0332-0475 Nutritional Problem 1. Problem Problem Pt has excessive fat intake Etiology due to inappropriate diet order Signs/Symptoms: labs indicate Hypercholesterolemia Cholest 242 (08/16) Malnutrition Alert Is there a minimum of two criteria No selected? Query Text:Check all the applicable criteria. A minimum of two criteria are recommended for diagnosis of either severe or non-severe malnutrition. Malnutrition Related to Morbid Obesity Malnutrition related to morbid obesity No Intervention/Recommendation Comments Recommend changing diet order to cardiac diet. Expected Outcomes/Goals Expected Outcomes/Goals - Monitor PO intake. - Lipid Panel Return to WNL. - F/U in 7 days as LR
--- NOTE | 2018-08-22 23:21 | Progress Notes ---
DATE: 08/21/2018 SUBJECTIVE: The patient is seen and interviewed. Case is discussed with staff. The patient presents as irritable and easily agitated. The patient is verbalizing sexually inappropriate comments and appears to be sexually preoccupied with sexually implied commentary. The staff reports the patient has had some yelling episodes. The patient responded to some of the clinical questions; however, most of the patient's responses were irrelevant to the clinical questions being asked. OBJECTIVE: Mood is irritable. Affect is broad, animated, and labile. Thought process shows to be markedly tangential with loose associations and derailments. The patient denied any auditory or visual hallucinations. There seems to be persistent paranoid ideation present. The patient's thought content also includes sexual preoccupation. The patient's behavior is still impulsive. ASSESSMENT AND PLAN: We provided with supportive psychotherapy to include reality orientation, differentiation, and integration. We provided boundary definitions and boundary awareness with respect to the patient being sexually preoccupied. We provided remotivation for the patient to become compliant and stay compliant with all aspects of her care and treatment. Stress management was also provided to help the patient increase her frustration tolerance and to be able to verbalize concerns in an appropriate manner. We encouraged the patient to be able to demonstrate emotional and self-regulation prior to her discharge. JOB# [id number] MIRIAN
--- NOTE | 2018-08-23 03:15 | Progress Notes ---
DATE: 08/22/2018 SUBJECTIVE: Staff was spoken to. The patient is interviewed. Mood is noted to be less irritable. Affect is appropriate. Insight and judgment noted to be improving. Impulse control is noted to be fair. No side effects to the medications are noted. The patient is being closely monitored at this time. The patient is currently on sertraline 25 mg and Seroquel 25 mg at bedtime and has been able to tolerate. No major behavioral problems are noted today. ASSESSMENT: The patient's psychosis is resolving. PLAN: To continue the patient with the supportive therapy. I encourage the patient to verbalize the concerns rather than to act out. JOB# [id number]
[2018-08-23] MEDS: Multivitamin Tab PO SCH (09:00)
--- NOTE | 2018-08-23 16:34 | Internal Medicine Prog Note ---
Internal Medicine Subjective - Subjective Service Date: 08/23/18 Patient is:: awake, verbal, devante chair, talking, confused Per staff patient has:: no adverse event, no episodes of fall, poor oral intake , agitated, combative Internal Medicine Objective - Results Result Diagrams: 08/16/18 19:45 08/16/18 19:45 Recent Labs: Laboratory Last Values WBC 9.8 Th/cmm (4.8-10.8) 08/16/18 19:45 RBC 4.19 Mil/cmm (3.80-5.20) 08/16/18 19:45 Hgb 12.7 gm/dL (12-16) 08/16/18 19:45 Hct 39.4 % (41.0-60) L 08/16/18 19:45 MCV 94.1 fl (81-100) 08/16/18 19:45 MCH 30.3 pg (27.0-31.0) 08/16/18 19:45 MCHC Differential 32.2 pg (28.0-36.0) 08/16/18 19:45 RDW 12.3 % (11.5-20.0) 08/16/18 19:45 Plt Count 250 Th/cmm (150-400) 08/16/18 19:45 MPV 9.5 fl 08/16/18 19:45 Neutrophils % 59.2 % (40.0-80.0) 08/16/18 19:45 Lymphocytes % 22.6 % (20.0-50.0) 08/16/18 19:45 Monocytes % 9.6 % (2.0-10.0) 08/16/18 19:45 Eosinophils % 8.3 % (0.0-5.0) H 08/16/18 19:45 Basophils % 0.3 % (0.0-2.0) 08/16/18 19:45 Sodium 139 mEq/L (136-145) 08/16/18 19:45 Potassium 3.5 mEq/L (3.5-5.1) 08/16/18 19:45 Chloride 103 mEq/L (98-107) 08/16/18 19:45 Carbon Dioxide 26.6 mEq/L (21.0-31.0) 08/16/18 19:45 Anion Gap 12.9 (7.0-16.0) 08/16/18 19:45 BUN 29 mg/dL (7-25) H 08/16/18 19:45 Creatinine 0.9 mg/dL (0.6-1.2) 08/16/18 19:45 Est GFR ( Amer) TNP 08/16/18 19:45 Est GFR (Non-Af Amer) TNP 08/16/18 19:45 BUN/Creatinine Ratio 32.2 08/16/18 19:45 Glucose 103 mg/dL (70-105) 08/16/18 19:45 Calcium 9.9 mg/dL (8.6-10.3) 08/16/18 19:45 Total Bilirubin 0.3 mg/dL (0.3-1.0) 08/16/18 19:45 AST 15 U/L (13-39) 08/16/18 19:45 ALT 11 U/L (7-52) 08/16/18 19:45 Alkaline Phosphatase 47 U/L (34-104) 08/16/18 19:45 Total Protein 7.1 gm/dL (6.0-8.3) 08/16/18 19:45 Albumin 4.0 gm/dL (3.7-5.3) 08/16/18 19:45 Globulin 3.1 gm/dL 08/16/18 19:45 Albumin/Globulin Ratio 1.3 (1.0-1.8) 08/16/18 19:45 Triglycerides 126 mg/dL (<150) 08/16/18 19:45 Cholesterol 242 mg/dL (<200) H 08/16/18 19:45 LDL Cholesterol Direct 172 mg/dL (75-193) 08/16/18 19:45 HDL Cholesterol 50 mg/dL (23-92) 08/16/18 19:45 TSH 2.82 uIU/ml (0.34-5.60) 08/16/18 19:45 RPR NONREACTIVE (NONREACTIVE) 08/16/18 19:45 - Physical Exam Vitals and I&O: Vital Signs Temp 96 F 08/23/18 14:00 Pulse 82 08/23/18 14:00 Resp 20 08/23/18 14:00 BP 121/77 08/23/18 14:00 Pulse Ox 98 08/23/18 14:00 Intake & Output 08/22/18 08/23/18 08/23/18 18:59 06:59 18:59 Intake Total 700 240 Balance 700 240 Weight (lbs) 130 lb Intake: Oral 700 240 Other: # Voids 3 3 # Bowel Movements 0 0 Weight Source Bedscale Active Medications: Current Medications Acetaminophen (Tylenol) 650 mg PO Q4HR PRN PRN Reason: Mild Pain 1-3/ Temp above 100 Stop: 10/15/18 21:56 Al Hydrox/Mg Hydrox/Simethicone (Maalox) 30 ml PO Q4HR PRN PRN Reason: GI DISTRESS Stop: 10/15/18 21:56 Amlodipine Besylate (Norvasc) 10 mg PO DAILY [facility] Stop: 10/16/18 08:59 Last Admin: 08/23/18 09:01 Dose: 10 mg Docusate Sodium (Colace) 100 mg PO BID [facility] Stop: 10/16/18 08:59 Last Admin: 08/23/18 09:02 Dose: 100 mg Lisinopril (Zestril) 10 mg PO DAILY [facility] Stop: 10/16/18 08:59 Last Admin: 08/23/18 09:01 Dose: 10 mg Lorazepam (Ativan) 0.5 mg PO Q4HR PRN; Protocol PRN Reason: Anxiety Stop: 09/15/18 21:56 Last Admin: 08/22/18 09:52 Dose: 0.5 mg Magnesium Hydroxide (Milk Of Magnesia) 30 ml PO HS PRN PRN Reason: Constipation Memantine (Namenda) 10 mg PO HS [facility] Stop: 10/16/18 20:59 Last Admin: 08/22/18 20:38 Dose: 10 mg Multivitamins/Vitamin C (Theragran) 1 tab PO DAILY [facility] Stop: 10/16/18 08:59 Last Admin: 08/23/18 09:00 Dose: 1 tab Quetiapine Fumarate (Seroquel) 25 mg PO HS [facility]; Protocol Stop: 10/19/18 20:59 Last Admin: 08/22/18 20:38 Dose: 25 mg Sertraline HCl (Zoloft) 25 mg PO DAILY [facility]; Protocol Stop: 10/16/18 08:59 Last Admin: 08/23/18 09:01 Dose: 25 mg Zolpidem Tartrate (Ambien) 5 mg PO HS PRN PRN Reason: Insomnia Stop: 10/15/18 21:56 Last Admin: 08/22/18 20:39 Dose: 5 mg General: demented HEENT: NC/AT, PERRLA, EOMI Neck: Supple, No JVD, No thyromegaly Lungs: CTAB Cardiovascular: RRR, Normal S1, Normal S2, with murmur Abdomen: soft, non-tender, globular, positive bowel sound Extremities: excoriation, contracture Neurological: no change, disorganized Internal Medicine Assmt/Plan - Assessment Assessment: Renal insufficiency, hyperglycemia, hypertension, psych disorder and gait instability. We will place the patient on fall precaution. We will continue the patient on antihypertensive medication. - Plan Plan: fall precautions continue current plan of care Nutritional Asmnt/Malnutr-PDOC - Dietary Evaluation Malnutrition Findings (Please click <Entered> for more info): Nutritional Asmnt/Malnutrition Start: 08/19/18 10: 29 Text: Status: Complete Freq: Protocol: Document 08/19/18 10:29 DANITZA (Rec: 08/19/18 10:51 DANITZA SUE) Nutritional Asmnt/Malnutrition Patient General Information Nutritional Screening Moderate Risk Diagnosis Psychosis Pertinent Medical Hx/Surgical Hx Hyperglycemia, HTN, Schizophrenia Subjective Information Pt was asleep during IA. Nurse described her as very confused and combative. Pt is described as eating 75% of meals. Current Diet Order/ Nutrition Support Fortified Regular diet, 4 oz. HPN at lunch and dinner Pertinent Medications Maalox, Docusate, MOM, Zoloft, Ambien Pertinent Labs Cholest 242 (08/16) Nutritional Hx/Data Height 5 ft 2 in Height (Calculated Centimeters) 157.5 Current Weight (lbs) 130 lb Weight (Calculated Kilograms) 59.0 Weight (Calculated Grams) 08126.0 [place] Body Weight 110 % [place] Body Weight 118 Body Mass Index (BMI) 23.8 Weight Status Approriate GI Symptoms GI Symptoms None Last BM 1 x (08/19) Difficult in: None Food Allergies No Cultural/Ethnic/Restoration Belief None Noted Skin Integrity/Comment: Jacobo Score 17 (Mod risk) Pt has photos in her physical chart of Ecchymosis on her arms & legs. Current %PO Good (75-100%) Estimated Nutritional Goals BEE in Kcals: Adj wt of IBW Calories/Kcals/Kg 25-30 Kcals Calculated 4446-4205 Protein: Adj wt of IBW Protein g/k.8-1 Protein Calculated 42-52 Fluid: ml 2463-4194 Nutritional Problem 1. Problem Problem Pt has excessive fat intake Etiology due to inappropriate diet order Signs/Symptoms: labs indicate Hypercholesterolemia Cholest 242 (08/16) Malnutrition Alert Is there a minimum of two criteria No selected? Query Text:Check all the applicable criteria. A minimum of two criteria are recommended for diagnosis of either severe or non-severe malnutrition. Malnutrition Related to Morbid Obesity Malnutrition related to morbid obesity No Intervention/Recommendation Comments Recommend changing diet order to cardiac diet. Expected Outcomes/Goals Expected Outcomes/Goals - Monitor PO intake. - Lipid Panel Return to WNL. - F/U in 7 days as LR
--- NOTE | 2018-08-23 23:31 | Progress Notes ---
DATE: 08/23/2018 SUBJECTIVE: The patient is seen and interviewed. The patient presents as less irritable and mostly friendly and congenial. The staff reports that the patient's impulse control is fair. No major behavioral problems are noted. The patient states she believes she is ready to be discharged. OBJECTIVE: Mood stabilizing. Affect appropriate. Thought process goal oriented. The patient denied any hallucinations or delusions. The patient's behavior has been compliant with care. The patient's psychosis is resolving. ASSESSMENT AND PLAN: We continued supportive therapy, which included reality integration as well as re-motivation for the patient to stay compliant with all aspects of her care and treatment going forward. We encouraged the patient to be able to verbalize her concerns to the staff at her placement versus acting out. The patient is able to demonstrate emotional and self-regulation at the time of this visit. We provided coping strategies for phase of life issues as well. Patient may be discharging today or tomorrow. JOB# [id number] MIRIAN
--- NOTE | 2018-08-24 02:24 | Progress Notes ---
DATE: 08/23/2018 PSYCHIATRIC PROGRESS NOTE SUBJECTIVE: Staff was spoken to. The patient is interviewed. Mood is noted to be less irritable. Affect is appropriate. She is not suicidal or homicidal. Paranoia is resolving. Coping skills are noted to be fair, but the patient continues to be demented. Short-term and long-term memory are noted to be poor. ASSESSMENT: The patient is stabilizing. PLAN: To continue the patient with the current medications and possibly discharge her tomorrow. JOB# [id number]
[2018-08-24] MEDS: Multivitamin Tab PO SCH (09:59)
--- NOTE | 2018-08-24 12:17 | Progress Notes ---
DATE: 08/24/2018 SUBJECTIVE: Staff was spoken to. The patient is interviewed. Mood is noted to be anxious. Affect is appropriate. Not suicidal or homicidal. Insight and judgment at this time noted to be improving. Impulse control seems to be fair. The patient denies any active hallucinations or delusions are noted. ASSESSMENT: The patient is stabilizing. PLAN: To discharge the patient today for followup on outpatient basis. JOB# [id number]
--- NOTE | 2018-08-24 15:11 | Internal Medicine Prog Note ---
Internal Medicine Subjective - Subjective Patient seen and examined:: with staff, chart reviewed Patient is:: awake, verbal, devante chair, talking, confused Per staff patient has:: no adverse event, no episodes of fall, poor oral intake , agitated, combative Internal Medicine Objective - Results Result Diagrams: 08/16/18 19:45 08/16/18 19:45 Recent Labs: Laboratory Last Values WBC 9.8 Th/cmm (4.8-10.8) 08/16/18 19:45 RBC 4.19 Mil/cmm (3.80-5.20) 08/16/18 19:45 Hgb 12.7 gm/dL (12-16) 08/16/18 19:45 Hct 39.4 % (41.0-60) L 08/16/18 19:45 MCV 94.1 fl (81-100) 08/16/18 19:45 MCH 30.3 pg (27.0-31.0) 08/16/18 19:45 MCHC Differential 32.2 pg (28.0-36.0) 08/16/18 19:45 RDW 12.3 % (11.5-20.0) 08/16/18 19:45 Plt Count 250 Th/cmm (150-400) 08/16/18 19:45 MPV 9.5 fl 08/16/18 19:45 Neutrophils % 59.2 % (40.0-80.0) 08/16/18 19:45 Lymphocytes % 22.6 % (20.0-50.0) 08/16/18 19:45 Monocytes % 9.6 % (2.0-10.0) 08/16/18 19:45 Eosinophils % 8.3 % (0.0-5.0) H 08/16/18 19:45 Basophils % 0.3 % (0.0-2.0) 08/16/18 19:45 Sodium 139 mEq/L (136-145) 08/16/18 19:45 Potassium 3.5 mEq/L (3.5-5.1) 08/16/18 19:45 Chloride 103 mEq/L (98-107) 08/16/18 19:45 Carbon Dioxide 26.6 mEq/L (21.0-31.0) 08/16/18 19:45 Anion Gap 12.9 (7.0-16.0) 08/16/18 19:45 BUN 29 mg/dL (7-25) H 08/16/18 19:45 Creatinine 0.9 mg/dL (0.6-1.2) 08/16/18 19:45 Est GFR ( Amer) TNP 08/16/18 19:45 Est GFR (Non-Af Amer) TNP 08/16/18 19:45 BUN/Creatinine Ratio 32.2 08/16/18 19:45 Glucose 103 mg/dL (70-105) 08/16/18 19:45 Calcium 9.9 mg/dL (8.6-10.3) 08/16/18 19:45 Total Bilirubin 0.3 mg/dL (0.3-1.0) 08/16/18 19:45 AST 15 U/L (13-39) 08/16/18 19:45 ALT 11 U/L (7-52) 08/16/18 19:45 Alkaline Phosphatase 47 U/L (34-104) 08/16/18 19:45 Total Protein 7.1 gm/dL (6.0-8.3) 08/16/18 19:45 Albumin 4.0 gm/dL (3.7-5.3) 08/16/18 19:45 Globulin 3.1 gm/dL 08/16/18 19:45 Albumin/Globulin Ratio 1.3 (1.0-1.8) 08/16/18 19:45 Triglycerides 126 mg/dL (<150) 08/16/18 19:45 Cholesterol 242 mg/dL (<200) H 08/16/18 19:45 LDL Cholesterol Direct 172 mg/dL (75-193) 08/16/18 19:45 HDL Cholesterol 50 mg/dL (23-92) 08/16/18 19:45 TSH 2.82 uIU/ml (0.34-5.60) 08/16/18 19:45 RPR NONREACTIVE (NONREACTIVE) 08/16/18 19:45 - Physical Exam Vitals and I&O: Vital Signs Temp 97.6 F 08/24/18 06:00 Pulse 65 08/24/18 09:58 Resp 19 08/24/18 11:46 BP 130/71 08/24/18 09:58 Pulse Ox 97 08/24/18 06:00 Intake & Output 08/23/18 08/24/18 08/24/18 18:59 06:59 18:59 Intake Total 1200 370 Balance 1200 370 Intake: Oral 1200 370 Other: # Voids 3 2 # Bowel Movements 0 Active Medications: Current Medications Acetaminophen (Tylenol) 650 mg PO Q4HR PRN PRN Reason: Mild Pain 1-3/ Temp above 100 Stop: 10/15/18 21:56 Al Hydrox/Mg Hydrox/Simethicone (Maalox) 30 ml PO Q4HR PRN PRN Reason: GI DISTRESS Stop: 10/15/18 21:56 Amlodipine Besylate (Norvasc) 10 mg PO DAILY GLENIS Stop: 10/16/18 08:59 Last Admin: 08/24/18 09:58 Dose: 10 mg Docusate Sodium (Colace) 100 mg PO BID GLENIS Stop: 10/16/18 08:59 Last Admin: 08/24/18 09:59 Dose: 100 mg Lisinopril (Zestril) 10 mg PO DAILY GLENIS Stop: 10/16/18 08:59 Last Admin: 08/24/18 09:57 Dose: 10 mg Lorazepam (Ativan) 0.5 mg PO Q4HR PRN; Protocol PRN Reason: Anxiety Stop: 09/15/18 21:56 Last Admin: 08/22/18 09:52 Dose: 0.5 mg Magnesium Hydroxide (Milk Of Magnesia) 30 ml PO HS PRN PRN Reason: Constipation Memantine (Namenda) 10 mg PO HS GLENIS Stop: 10/16/18 20:59 Last Admin: 08/23/18 20:50 Dose: 10 mg Multivitamins/Vitamin C (Theragran) 1 tab PO DAILY GLENIS Stop: 10/16/18 08:59 Last Admin: 08/24/18 09:59 Dose: 1 tab Quetiapine Fumarate (Seroquel) 25 mg PO HS GLENIS; Protocol Stop: 10/19/18 20:59 Last Admin: 08/23/18 20:50 Dose: 25 mg Sertraline HCl (Zoloft) 25 mg PO DAILY GLENIS; Protocol Stop: 10/16/18 08:59 Last Admin: 08/24/18 09:59 Dose: 25 mg Zolpidem Tartrate (Ambien) 5 mg PO HS PRN PRN Reason: Insomnia Stop: 10/15/18 21:56 Last Admin: 08/23/18 20:50 Dose: 5 mg General: demented HEENT: NC/AT, PERRLA, EOMI Neck: Supple, No JVD, No thyromegaly Lungs: CTAB Cardiovascular: RRR, Normal S1, Normal S2, with murmur Abdomen: soft, non-tender, globular, positive bowel sound Extremities: excoriation, contracture Neurological: no change, disorganized Internal Medicine Assmt/Plan - Assessment Assessment: ASSESSMENT Renal insufficiency, hyperglycemia, hypertension, psych disorder and gait instability. We will place the patient on fall precaution. We will continue the patient on antihypertensive medication. - Plan Plan: PLAN: We will place the patient on fall precaution. We will continue the patient on antihypertensive medication. We will monitor the patient's __lft__ function, may consider a statin medication. We will place the patient on low-cholesterol diet for now. We will continue to monitor the patient closely. Psychiatry to manage the patient for all psych issues. Nutritional Asmnt/Malnutr-PDOC - Dietary Evaluation Malnutrition Findings (Please click <Entered> for more info): Nutritional Asmnt/Malnutrition Start: 08/19/18 10: 29 Text: Status: Complete Freq: Protocol: Document 08/19/18 10:29 DANITZA (Rec: 08/19/18 10:51 DANITZA SUE) Nutritional Asmnt/Malnutrition Patient General Information Nutritional Screening Moderate Risk Diagnosis Psychosis Pertinent Medical Hx/Surgical Hx Hyperglycemia, HTN, Schizophrenia Subjective Information Pt was asleep during IA. Nurse described her as very confused and combative. Pt is described as eating 75% of meals. Current Diet Order/ Nutrition Support Fortified Regular diet, 4 oz. HPN at lunch and dinner Pertinent Medications Maalox, Docusate, MOM, Zoloft, Ambien Pertinent Labs Cholest 242 (08/16) Nutritional Hx/Data Height 1.57 m Height (Calculated Centimeters) 157.5 Current Weight (lbs) 58.967 kg Weight (Calculated Kilograms) 59.0 Weight (Calculated Grams) 44365.0 [place] Body Weight 110 % [place] Body Weight 118 Body Mass Index (BMI) 23.8 Weight Status Approriate GI Symptoms GI Symptoms None Last BM 1 x (08/19) Difficult in: None Food Allergies No Cultural/Ethnic/[employer] Belief None Noted Skin Integrity/Comment: Jacobo Score 17 (Mod risk) Pt has photos in her physical chart of Ecchymosis on her arms & legs. Current %PO Good (75-100%) Estimated Nutritional Goals BEE in Kcals: Adj wt of IBW Calories/Kcals/Kg 25-30 Kcals Calculated 1120-4996 Protein: Adj wt of IBW Protein g/k.8-1 Protein Calculated 42-52 Fluid: ml 2131-0808 Nutritional Problem 1. Problem Problem Pt has excessive fat intake Etiology due to inappropriate diet order Signs/Symptoms: labs indicate Hypercholesterolemia Cholest 242 (08/16) Malnutrition Alert Is there a minimum of two criteria No selected? Query Text:Check all the applicable criteria. A minimum of two criteria are recommended for diagnosis of either severe or non-severe malnutrition. Malnutrition Related to Morbid Obesity Malnutrition related to morbid obesity No Intervention/Recommendation Comments Recommend changing diet order to cardiac diet. Expected Outcomes/Goals Expected Outcomes/Goals - Monitor PO intake. - Lipid Panel Return to WNL. - F/U in 7 days as LR
== END 2018-08-24 15:45 | DRG 885 ==
LOC: ER 19:20 → GERO 20:55 → ER 21:25
DX: F33.1 Major depressive disorder, recurrent, moderate (principal); F03.91 Unspecified dementia, unspecified severity, with behavioral disturbance; R26.9 Unspecified abnormalities of gait and mobility; N18.2 Chronic kidney disease, stage 2 (mild); N28.9 Disorder of kidney and ureter, unspecified; R73.9 Hyperglycemia, unspecified; F29 Unspecified psychosis not due to a substance or known physiological condition; I12.9 Hypertensive chronic kidney disease with stage 1 through stage 4 chronic kidney disease, or unspecified chronic kidney disease; Z88.5 Allergy status to narcotic agent; Z18.2 Retained plastic fragments
CPT/HCPCS: 36415-UA; 80053-TC; 80061-TC; 83036-90; 84443-TC; 85025-TC; 86592-TC; 93005; G0410; J1200; J2060; Z7610